=== PATIENT | male | born 1990 | race Caucasian/White ===

== ENCOUNTER 2018-08-08 16:36 | Emergency (ER) | payer OTHER ==
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
[2018-08-08 16:48] VITALS: BP 121/73
[2018-08-08] MEDS ORDERED: SKIN ADHESIVE (DERMABOND) 1 EACH TP ONE ×2 (17:53→18:12)
== END 2018-08-08 18:23 | disposition home or self-care (01) ==
LOC: EDUNIT#
PROC: 0HQ1XZZ Repair Face Skin, External Approach (ICD-10-PCS; principal; 2018-08-08)
DX: S01.111A Laceration without foreign body of right eyelid and periocular area, initial encounter (principal); S01.511A Laceration without foreign body of lip, initial encounter; Y04.0XXA Assault by unarmed brawl or fight, initial encounter

== ENCOUNTER 2018-10-13 18:07 | Emergency (ER) | payer OTHER ==
[2018-10-13] MEDS ORDERED: ONDANSETRON 4 MG/2 ML VIAL ONE (18:17)
[2018-10-13] MEDS ORDERED: ONDANSETRON 4 MG/2 ML VIAL IVP ONE (18:19)
[2018-10-13 18:29] LABS: PLATELET COUNT 179 10^3/uL (150-400)
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
[2018-10-13] MEDS ORDERED: NS 1,000 ML IV ONE (18:51)
[2018-10-13] MEDS ORDERED: ONDANSETRON 4MG PREPACK#2 BTL TAKEHOME ONE (20:24)
[2018-10-13 20:53] VITALS: BP 119/57
== END 2018-10-13 20:54 | disposition home or self-care (01) ==
DX: N23 Unspecified renal colic (principal); N20.0 Calculus of kidney; E86.9 Volume depletion, unspecified; F41.9 Anxiety disorder, unspecified; J45.909 Unspecified asthma, uncomplicated; Z87.891 Personal history of nicotine dependence
CPT/HCPCS: 96374; J2405